=== PATIENT | female | born 1990 | race Caucasian/White ===

== ENCOUNTER 2019-05-15 07:31 | Emergency (ER) | payer OTHER ==
[~2019-05-15] VITALS: Ht 175.3 cm; Wt 75.3 kg
[2019-05-15 07:39] VITALS: BP 119/68
[2019-05-15 08:41] LABS: RAPID INFLUENZA A Negative (Negative); RAPID INFLUENZA B Negative (Negative)
--- NOTE | 2019-05-15 09:05 | NUR ---
Patient/Caregiver given discharge instructions and they have confirmed that they understand the instructions. Patient ambulatory with steady gait.
== END 2019-05-15 09:14 | disposition home or self-care (01) ==
LOC: ED 08:58
DX: J06.9 Acute upper respiratory infection, unspecified (principal); R05 Cough; R11.0 Nausea; F17.200 Nicotine dependence, unspecified, uncomplicated; Z72.89 Other problems related to lifestyle; Z90.89 Acquired absence of other organs
CPT/HCPCS: 87081; 87400; 87880; 99283